=== PATIENT | female | born 1950 | race Hispanic/Latino ===

== ENCOUNTER 2023-09-14 06:58 | Day surgery (SDC) | payer OTHER, MEDICARE ==
[~2023-09-14] VITALS: Ht 152.4 cm; Wt 78.0 kg
[2023-09-14] VITALS (11 sets, daily range): BP systolic 113–136; BP diastolic 60–69; PULSE 59–72; RESP 15–18
[~2023-09-14 06:58] MED LIST: APIX5TAB PO; ATOR10 PO; ERGO500093 PO; FOLI1 PO; FURO20TA4 PO; LEVO250T75 PO; METH2.5T6 PO; SUCR1ORA15 PO; TOFA11TA PO
[2023-09-14] MEDS: 0.9%NACL 1000ML 1,000 ML IV ONE (07:40)
[2023-09-14] MEDS ORDERED: PROPOFOL 10 MG/ML 20ML VIAL IV ONE (10:11)
== END 2023-09-14 11:35 | disposition home or self-care (01) ==
LOC: DAH 06:58
PROVIDERS: ATTEND Internal Medicine Gastroenterology
DX: K21.00 Gastro-esophageal reflux disease with esophagitis, without bleeding (principal); K29.50 Unspecified chronic gastritis without bleeding; K31.89 Other diseases of stomach and duodenum; K22.2 Esophageal obstruction; K22.89 Other specified disease of esophagus; R13.10 Dysphagia, unspecified; K22.0 Achalasia of cardia; M19.90 Unspecified osteoarthritis, unspecified site; K59.00 Constipation, unspecified; K76.0 Fatty (change of) liver, not elsewhere classified; R16.0 Hepatomegaly, not elsewhere classified; Z82.5 Family history of asthma and other chronic lower respiratory diseases; Z88.0 Allergy status to penicillin; Z79.1 Long term (current) use of non-steroidal anti-inflammatories (NSAID); Z79.899 Other long term (current) drug therapy; Z90.49 Acquired absence of other specified parts of digestive tract
CPT/HCPCS: 43249; 43239; J7030; J2704; C1726; A4620; J3490

== ENCOUNTER 2023-11-09 05:54 | Day surgery (SDC) | payer OTHER, MEDICARE ==
[2023-11-09] VITALS (15 sets, daily range): BP systolic 103–133; BP diastolic 59–69; PULSE 63–85; RESP 15–18
[~2023-11-09] VITALS: Ht 154.9 cm; Wt 75.3 kg
[~2023-11-09 05:54] MED LIST changes: +0.9%NACL 1000ML 1,000 ML IV ONE
[2023-11-09] MEDS: 0.9%NACL 1000ML 1,000 ML IV ONE (06:34)
[2023-11-09] MEDS ORDERED: SUCCINYLCHOLINE CHLORIDE 20 MG/ML 10 ML VIAL ONE (08:07)
[2023-11-09] MEDS ORDERED: PROPOFOL 10 MG/ML 20ML VIAL IV ONE ×2 (08:07→08:20)
[2023-11-09] MEDS ORDERED: EPHEDRINE SULFATE 50 MG/ML AMPULE ONE (08:07)
[2023-11-09] MEDS ORDERED: IOHEXOL-350 50ML VIAL IV ONE (15:49)
== END 2023-11-09 10:30 | disposition home or self-care (01) ==
LOC: DAH 05:54 → ENDO 05:54
PROVIDERS: ATTEND Internal Medicine Gastroenterology
DX: R13.10 Dysphagia, unspecified (principal); K22.2 Esophageal obstruction; K22.0 Achalasia of cardia; K76.0 Fatty (change of) liver, not elsewhere classified; K74.60 Unspecified cirrhosis of liver; Z90.49 Acquired absence of other specified parts of digestive tract
CPT/HCPCS: 43233; J0330; J7030 ×2; J3490; J2704 ×2; Q9967; A4620; A4215; A4223; A4657; A7002; A4222; A4221; A4663; A4606; 43220; 76000